=== PATIENT | male | born 1985 | race Caucasian/White ===

== ENCOUNTER 2018-04-26 03:16 | Emergency (ER) | payer OTHER ==
[~2018-04-26] VITALS: Ht 177.8 cm; Wt 92.7 kg
[2018-04-26] MEDS ORDERED: LIDOCAINE-MPF 2%, 2ML ONE (03:50)
[2018-04-26] MEDS ORDERED: LIDOCAINE-MPF 1%, 5ML INFIL ONE (04:00)
[2018-04-26 04:26] VITALS: BP 129/91
== END 2018-04-26 04:29 | disposition left against medical advice (07) ==
LOC: ED 04:23
DX: S01.511A Laceration without foreign body of lip, initial encounter (principal); R07.89 Other chest pain; S80.212A Abrasion, left knee, initial encounter; S80.211A Abrasion, right knee, initial encounter; Y04.8XXA Assault by other bodily force, initial encounter; Y93.89 Activity, other specified; Y99.8 Other external cause status; Y92.511 Restaurant or cafe as the place of occurrence of the external cause
CPT/HCPCS: 12051